=== PATIENT | female | born 1985 | race Caucasian/White ===

== ENCOUNTER 2019-08-19 20:13 | Inpatient (IN) ==
[2019-08-19] MEDS ORDERED: ONDANSETRON 4 MG/2 ML VIAL IV PRN (22:40)
[2019-08-19 22:44] LABS: Apearance,Urine CLOUDY (Clear); Bacteria,Urine Occasional /HPF (Few); Bilirubin,Urine Negative (Negative); Blood, Urine Negative (Negative); Glucose,Urine (UA) Negative (Negative); Ketones,Urine Negative (Negative); Mucus,Urine Occasional /LPF (Occasional); Nitrite,Urine Negative (Negative); Protein,Urine Negative; Squamous Epithelial Cell,Urine Few /HPF (0-10); Urine Color Yellow (Yellow); Urine Specific Gravity 1.015 (1.001-1.035); Urine Urobilinogen < 2.0 EU/DL (0.2-1.0); WBC,Urine 1 /HPF (0-6)
[2019-08-19] MEDS: LACTATED RINGERS 1,000 ML IV SCH (22:48)
[2019-08-19 23:06] LABS: Basophils % 0.2 % (0.0-0.8); Eosinophils # 0.2 10*3/uL (0.0-0.87); Hematocrit 33.4 VOL% (35.7-47.0); Hemoglobin 10.9 GM/DL (12.0-16.0); Immature Granulocytes % 0.6 %; Immature Granulocytes Absolute 0.05 #; Lymphocytes # 2.5 10*3/uL (1.4-4.0); Lymphocytes % 28.1 % (21.3-54.2); Mean Corpuscular HGB Conc 32.6 GM/DL (32-36); Mean Platelet Volume 11.1 FL (9.6-12.0); Monocytes % 9.5 % (1.7-12.7); Neutrophils % 59.6 % (38.7-73.9); Platelet Count 222 T/CUMM (130-400); Red Blood Count 3.71 MC/CUMM (3.8-5.5); Red Cell Distribution Width 15.6 % (9.3-17.3); White Blood Count 8.9 T/CUMM (4-12)
[2019-08-20] MEDS: LACTATED RINGERS 1,000 ML IV SCH ×2 (00:24→12:03)
[2019-08-20] MEDS ORDERED: ONDANSETRON 4 MG/2 ML VIAL IV ONE (08:56)
[2019-08-20] MEDS ORDERED: diphenhydrAMINE 50 MG/1 ML VIAL IV PRN ×2 (08:56)
[2019-08-20] MEDS ORDERED: PROMETHAZINE 25 MG/1 ML VIAL IM ONE (08:56)
[2019-08-20] MEDS ORDERED: LACTATED RINGERS 1,000 ML IV PRN (08:56)
[2019-08-20] MEDS ORDERED: ePHEDrine 50 MG/ML AMP IV PRN (08:56)
[2019-08-20] MEDS ORDERED: FAMOTIDINE 20 MG/2 ML VIAL IV PRN (08:56)
[2019-08-20] MEDS ORDERED: hydrOXYzine HCL 25 MG/1 ML VIAL IM PRN (08:56)
[2019-08-20] MEDS ORDERED: CITRIC ACID/SODIUM CITRATE 30 ML UDCUP PO PRN (08:56)
[2019-08-20] MEDS ORDERED: ceFAZolin 2,000 MG in PREMIX 1 EACH IV PRN (08:58)
[2019-08-20 09:26] LABS: Albumin 2.6 G/DL (3.4-5.0); Bilirubin,Total 0.4 MG/DL (0.2-1.0); Osmolality,Calculated 277.3 MOS/KG (273-304); Total Protein 6.5 G/DL (6.4-8.3); Uric Acid 4.2 MG/DL (2.6-6.0)
[2019-08-20 09:26] LABS: INR 0.9; PT Patient Result 10.2 SECS (9.6-12.2); Partial Thromboplastin Time 25.6 SECS (20.8-36.0)
[2019-08-20] MEDS ORDERED: BUPIVACAINE 0.25% 50 ML VIAL ONE (14:56)
[2019-08-20] MEDS ORDERED: PHENYLEPHRINE 1 MG/10 ML SYRINGE IV ONE (14:56)
[2019-08-20] MEDS ORDERED: BUPIVACAINE SPINAL 0.75% 2 ML AMP SPINAL ONE (14:57)
[2019-08-20] MEDS ORDERED: fentaNYL 100 MCG/2 ML VIAL ONE (14:57)
[2019-08-20] MEDS ORDERED: MORPHINE 10 MG/10 ML VIAL ONE (14:57)
[2019-08-20] MEDS ORDERED: miSOPROStoL 200 MCG TABLET ONE (16:44)
[2019-08-20] MEDS ORDERED: METHYLERGONOVINE 0.2 MG/1 ML AMP ONE (16:44)
[2019-08-20] MEDS ORDERED: OXYTOCIN/LR 20 UNIT/1,000 ML BAG IV ONE ×2 (16:44→19:18)
[2019-08-20] MEDS ORDERED: TRANEXAMIC ACID 1,000 MG/10 ML VIAL ONE (16:44)
[2019-08-20] MEDS ORDERED: CARBOPROST TROMETHAMINE 250 MCG/ML AMP IM ONE (16:44)
[2019-08-20] MEDS ORDERED: METHYLERGONOVINE 0.2 MG/1 ML AMP IM ONE (18:27)
[2019-08-20] MEDS ORDERED: ACETAMINOPHEN 325 MG TABLET PO PRN (19:18)
[2019-08-20] MEDS ORDERED: RHO(D) IMMUNE GLOBULIN 300 MCG SYRINGE IM ONE (19:18)
[2019-08-20] MEDS ORDERED: MAGNESIUM HYDROXIDE SUSP 30 ML UDCUP PO PRN (19:18)
[2019-08-20] MEDS ORDERED: ONDANSETRON 4 MG/2 ML VIAL IV PRN (19:18)
[2019-08-20] MEDS ORDERED: oxyCODONE/ACETAMINOPHEN 5-325 MG TABLET PO PRN (19:20)
[2019-08-20] MEDS ORDERED: LACTATED RINGERS 1,000 ML IV SCH (19:30)
[2019-08-20] MEDS: IBUPROFEN 800 MG TABLET PO PRN (22:16)
[2019-08-20] MEDS: oxyCODONE/ACETAMINOPHEN 5-325 MG TABLET PO PRN (22:16)
[2019-08-20] MEDS: DOCUSATE SODIUM 100 MG CAPSULE PO SCH (23:51)
[2019-08-21] MEDS: ceFAZolin 1,000 MG in SYRINGE 1 EACH IV SCH ×2 (02:04→09:40)
[2019-08-21 05:48] LABS: Basophils % 0.2 % (0.0-0.8); Eosinophils # 0.1 10*3/uL (0.0-0.87); Hematocrit 31.8 VOL% (35.7-47.0); Hemoglobin 10.2 GM/DL (12.0-16.0); Immature Granulocytes % 0.5 %; Immature Granulocytes Absolute 0.05 #; Lymphocytes % 20.3 % (21.3-54.2); Mean Corpuscular HGB Conc 32.1 GM/DL (32-36); Mean Corpuscular Volume 90.3 FL (87-102); Monocytes % 7.9 % (1.7-12.7); Neutrophils % 70.1 % (38.7-73.9); Platelet Count 197 T/CUMM (130-400); Red Blood Count 3.52 MC/CUMM (3.8-5.5); Red Cell Distribution Width 15.8 % (9.3-17.3); White Blood Count 9.9 T/CUMM (4-12)
[2019-08-21 07:28] LABS: Apearance,Urine CLEAR (Clear); Bilirubin,Urine Negative (Negative); Blood, Urine Negative (Negative); Glucose,Urine (UA) Negative (Negative); Ketones,Urine 20 mg/dL (Negative); Mucus,Urine Occasional /LPF (Occasional); Nitrite,Urine Negative (Negative); Protein,Urine Negative; RBC,Urine 1 /HPF (0-4); Urine Color Yellow (Yellow); Urine Specific Gravity 1.012 (1.001-1.035); Urine Urobilinogen < 2.0 EU/DL (0.2-1.0)
[2019-08-21] MEDS: DOCUSATE SODIUM 100 MG CAPSULE PO SCH ×2 (08:28→21:02)
[2019-08-21] MEDS: MULTIVITAMIN (PRENATAL) TABLET PO SCH (08:28)
[2019-08-21] MEDS: IBUPROFEN 800 MG TABLET PO PRN ×2 (08:46→17:07)
[2019-08-21] MEDS: oxyCODONE/ACETAMINOPHEN 5-325 MG TABLET PO PRN ×2 (08:47→17:07)
[2019-08-21] MEDS: SIMETHICONE CHEW 80 MG TABLET PO PRN (21:02)
[2019-08-22] MEDS: IBUPROFEN 800 MG TABLET PO PRN ×3 (00:24→11:40)
[2019-08-22] MEDS: oxyCODONE/ACETAMINOPHEN 5-325 MG TABLET PO PRN ×3 (00:24→11:39)
[2019-08-22] MEDS ORDERED: BISACODYL 10 MG SUPP RECTAL PRN (03:01)
[2019-08-22] MEDS: SIMETHICONE CHEW 80 MG TABLET PO PRN (03:11)
[2019-08-22 07:28] VITALS: BP 93/57
[2019-08-22] MEDS: DOCUSATE SODIUM 100 MG CAPSULE PO SCH (10:05)
[2019-08-22] MEDS: MULTIVITAMIN (PRENATAL) TABLET PO SCH (10:05)
== END 2019-08-22 13:00 | disposition home or self-care (01) | DRG 788 ==
LOC: N.LDOUT 20:13 → N.LD 20:15 → N.OB 08-20 21:57
PROVIDERS: ADMIT Obstetrics & Gynecology; ATTEND Obstetrics & Gynecology
PROC: LDCSECT (ICD-10-PCS; 2019-08-20 18:00)